=== PATIENT | male | born 1955 | race Caucasian/White ===

== ENCOUNTER → 2017-05-19 | Outpatient (CLI) | payer OTHER ==
[2015-06-01 08:10] VITALS: BP 124/77
[~2017-05-19] VITALS: Ht 177.8 cm; Wt 67.1 kg
[~2017-05-19] MED LIST: NORMAL SALINE IV ONE; SINCALIDE IV ONE
--- NOTE | 2017-05-19 11:42 | RAD ---
Right upper quadrant abdominal ultrasound, 05/19/2017: History: Weight loss, abdominal pain The gallbladder is within normal limits in size. There is no sonographic evidence of cholelithiasis. The gallbladder wall is not thickened. No bile duct dilatation is seen. The visualized portions of the liver, pancreas and right kidney show no abnormality. IMPRESSION: No significant abnormality is detected.
--- NOTE | 2017-05-19 11:44 | RAD ---
Radionuclide hepatobiliary scan with gallbladder ejection fraction, 05/19/2017: History: Epigastric discomfort Following IV injection of 5.5 mCi of technetium 99m Choletec there was prompt uptake of the radionuclide from the blood stream by the liver. Activity is present in the bile ducts and gallbladder at 10 minutes. Initial imaging out to one hour showed increasing activity in the gallbladder without extension into the small bowel. Following IV injection of 1.3 mcg of cholecystokinin there was extension of activity into the small bowel. The gallbladder ejection fraction was calculated at 53%. IMPRESSION: 1. Normal radionuclide hepatobiliary scan. 2. The gallbladder ejection fraction is 53%.
== END | disposition home or self-care (01) ==
LOC: US 07:08
PROVIDERS: ATTEND Internal Medicine Gastroenterology
DX: R10.11 Right upper quadrant pain (principal); R63.4 Abnormal weight loss
CPT/HCPCS: 76705; 78226; 96374; 96375; A9537; J2805

== ENCOUNTER 2017-11-02 09:56 | Day surgery (SDC) | payer OTHER ==
[~2017-11-02 09:56] MED LIST changes: +HYDROmorphone 2 MG/ML VIAL IV PRN; +IV RINGERS,LACTATED 1000ML 1,000 ML IV SCH; +LIDOCAINE 1% PF 2 ML VIAL. ID PRN; +MORPHINE SULFATE 2 MG/ML DISP.SYRIN. IV PRN; -NORMAL SALINE IV ONE; +ONDANSETRON PF 4 MG/2 ML VIAL. IV PRN; +PROCHLORPERAZINE 10 MG/2 ML VIAL. IV PRN; -SINCALIDE IV ONE; +ceFAZolin SODIUM IV Push 1 GM VIAL. IVP ONE; +fentaNYL PF VIAL 100 MCG/2 ML VIAL IV PRN
[2017-11-02] MEDS ORDERED: 0.9 % SODIUM CHLORIDE 50 ML VIAL. IJ ONE ×2 (10:32)
[2017-11-02] MEDS ORDERED: LIDOCAINE 2% PF Vial for OR 5 ML VIAL. ONE ×3 (10:32)
[2017-11-02] MEDS ORDERED: PROPOFOL 50 ML IV ONE ×2 (10:32→13:53)
[2017-11-02] MEDS ORDERED: ZOLP5TAB PO (10:53)
[2017-11-02] MEDS ORDERED: IBUP-1027 PO (10:53)
[2017-11-02] MEDS ORDERED: ASPI-482 PO (10:53)
[2017-11-02] MEDS ORDERED: ATOR10TA60 PO (10:53)
--- NOTE | 2017-11-02 13:20 | DISCH ---
DISCHARGE INSTRUCTIONS Condition on Discharge Condition on Discharge: Stable Activity After Discharge Activity Instructions for Disc: Other, see below Other activity instructions: avoid hard grasp Diet after Discharge Diet after Discharge: Regular Wound Incision Care Wound/Incision Care: Ice to area for comfort, Do not change dressing Other wound/incision instructi: keep dressing dry Contacting the DRKelly after DC Call your doctor for: Concerns you may have Follow-Up Follow up with: Salvatore 10 days MARY VILLARREAL MD Nov 02, 2017 13:20
[2017-11-02] MEDS ORDERED: HYDR-971 PO (13:23)
[2017-11-02] MEDS ORDERED: BUPIVACAINE MPF 0.5% 30 ML VIAL. ONE (14:20)
--- NOTE | 2017-11-02 14:22 | PDOC4 ---
Operative Note Operative Note Date of surgery: 11/02/2017 Preoperative diagnosis: Right carpal tunnel syndrome Postoperative diagnosis: Same Operative procedure: Right carpal tunnel release Surgeon: Salvatore Anesthesia: Faustino block Estimated blood loss: 1 mL Complications: None Operative indications: Patient is had numbness and tingling and pain in the right hand fairly long-standing in nature affecting his activities of daily living and grasp. Diagnosis of carpal tunnel syndrome was confirmed by EMG testing. I had gone over with him operative treatment options as well as additional nonoperative treatment options all of which she is really exhausted at this point we talked about the possibility of ongoing symptoms and complete recovery medical or other anesthetic consultations among others and the possibility of tenderness at the base of the palm. All his questions were answered he wishes to proceed with operative evaluation and treatment Operative text: Patient was identified procedure verified patient placed in the supine position on the right operating table. After adequate amounts of Faustino block anesthesia were administered the right upper extremity was prepped and draped in standard sterile fashion timeout was performed patient procedure again identified and verified. A longitudinal incision was made just distal to the distal wrist crease dissection carried out down to the transverse carpal ligament which was divided longitudinally under direct visualization contents of carpal tunnel were protected no synovitis was noted median nerve was noted to have moderate compression which was released proximally and distally verified by insertion of a Ashburn elevator to verify complete release. Closure accomplished with nylon suture in vertical mattress fashion sterile dressings were applied fingers were noted be warm pink following inflation of the tourniquet patient was returned recovery room in stable condition having tolerated procedure well MARY VILLARREAL MD Nov 02, 2017 14:22
[2017-11-02 14:50] VITALS: BP 138/78
== END 2017-11-02 15:03 | disposition home or self-care (01) ==
LOC: SURG 09:56
PROVIDERS: ATTEND Orthopaedic Surgery
DX: G56.01 Carpal tunnel syndrome, right upper limb (principal); Z98.890 Other specified postprocedural states; E78.00 Pure hypercholesterolemia, unspecified
CPT/HCPCS: 64721; C1769; J2704; J3490; J0690; J2001

== ENCOUNTER → 2018-06-27 | Outpatient (CLI) | payer OTHER | END | disposition home or self-care (01) | LOC: KCIC 15:30 | DX: R07.81 Pleurodynia (principal) | CPT/HCPCS: 71101 ==

== ENCOUNTER 2021-09-26 11:37 | Emergency (ER) | payer MEDICARE ==
[~2021-09-26] VITALS: Ht 175.3 cm; Wt 70.4 kg
[~2021-09-26 11:37] MED LIST changes: +ASPI-482 PO; +ATOR10TA60 PO; +HYDR-3164 PO; -HYDROmorphone 2 MG/ML VIAL IV PRN; +IBUP-1027 PO; -IV RINGERS,LACTATED 1000ML 1,000 ML IV SCH; -LIDOCAINE 1% PF 2 ML VIAL. ID PRN; -MORPHINE SULFATE 2 MG/ML DISP.SYRIN. IV PRN; -ONDANSETRON PF 4 MG/2 ML VIAL. IV PRN; -PROCHLORPERAZINE 10 MG/2 ML VIAL. IV PRN; +ZOLP5TAB PO; -ceFAZolin SODIUM IV Push 1 GM VIAL. IVP ONE; -fentaNYL PF VIAL 100 MCG/2 ML VIAL IV PRN
[2021-09-26 11:58] VITALS: BP 115/69
--- NOTE | 2021-09-26 12:40 | PHYS DOC ---
Past Medical History Past Medical History: No Pertinent History Additional Past Medical Histor: "stomach issues" Past Surgical History: No Surgical History Smoking Status: Current Every Day Smoker Additional Information: 1ppd Alcohol Use: Occasionally Drug Use: None General Adult EDM: Chief Complaint: LOWER EXT PAIN HPI: HPI: Patient is a 66 year old male who presents with 1-2-week history of left calf pain. Patient states the pain started mild, but has been worse since onset. He describes the pain as swollen and tight, with sharp 10/10 pain on flexion. Patient states that he spoke to both his primary care provider and chiropractor, both of whom advised to visit the ER for evaluation. Patient denies history of hypertension, diabetes or cardiovascular issues. Patient does admit to smoking 1 pack/day. Patient denies recent travel, recent surgical procedure, or other bedrest. Patient states he is very active. He has no history of blood clots in the past. Patient has no other complaints at this time. Review of Systems: Review of Systems: Constitutional: Denies fever or chills. Respiratory: Denies cough or shortness of breath. Cardiovascular: Denies chest pain or edema. Musculoskeletal: See HPI Integument: Denies rash or other skin lesion. Neurologic: Denies headache, focal weakness or sensory changes. Heart Score: C/O Chest Pain: No Allergies: Allergies: Allergies Coded Allergies Type Severity Reaction Last Updated Verified bee venom protein (honey bee) Allergy Intermediate 11/02/17 No Physical Exam: PE: Constitutional: Well developed, well nourished, no acute distress, non-toxic appearance. Cardiovascular: Heart rate regular rhythm, no murmur. Lungs & Thorax: Bilateral breath sounds clear to auscultation. Skin: Warm, dry, no erythema, no rash. Extremities: Left calf is not swollen and does not have pitting edema, however there is tenderness along deep venous system, Homans' sign negative. Extremities otherwise no tenderness, no cyanosis, no clubbing, ROM intact, no edema. Neurologic: Alert and oriented x3, normal motor function, normal sensory function, no focal deficits noted. Current Patient Data: Vital Signs: Vital Signs Date Time Temp Pulse Resp B/P (MAP) Pulse Ox O2 Delivery O2 Flow Rate FiO2 09/26/21 11:58 98.2 77 20 115/69 (84) 96 Room Air 98.2 Radiology/Procedures: Radiology/Procedures: PROCEDURE: VENOUS LOWER EXTREMITY LEFT EXAM: Left lower extremity venous Doppler sonogram. HISTORY: Pain and swelling. TECHNIQUE: [place]amoros scale and color Doppler sonographic evaluation of the left lower extremity veins with spectral waveform analysis was performed. FINDINGS: There is occlusive left peroneal deep venous thrombosis. There is normal color flow, normal compressibility and there are normal spectral waveforms in the common femoral, superficial femoral, popliteal, posterior tibial and greater saphenous veins. IMPRESSION: Left peroneal deep venous thrombosis. Findings were discussed with Priyanka, the nurse in the ER, at 1330 hours on 09/26/2020. FOR INTERNAL CODING PURPOSES RESULT CODE: (C) Electronically signed by: Joann Morales MD (09/26/2021 1:33 PM) [id number] Course & Med Decision Making: Course & Med Decision Making Pertinent Labs and Imaging studies reviewed. (See chart for details) Patient has well score of 2 for tenderness along deep vein course and presence of varicose veins. Due to additional history of tobacco use 1 pack/day, venous ultrasound ordered. DVT is seen on ultrasound. Patient will be treated with Eliquis. Patient med list includes aspirin daily, however he denies that he takes this medication every day. Patient should follow-up with their primary care doctor. He should return for any worsening pain or new symptoms, especially shortness of breath or chest pain. Patient understands and is agreeable to discharge plan. Dragon Disclaimer: Dragon Disclaimer: This electronic medical record was generated, in whole or in part, using a voice recognition dictation system. Departure Departure Impression: Primary Impression: Deep venous thrombosis (DVT) of left peroneal vein Qualified Codes: I82.452 - Acute embolism and thrombosis of left peroneal vein Disposition: HOME / SELF CARE / HOMELESS Condition: STABLE Referrals: SILAS LORENZ MD (PCP) Patient Instructions: Deep Vein Thrombosis Additional Instructions: A DVT was seen on ultrasound today. You will be treated with Eliquis, which is an anticoagulant drug. Follow-up with your primary doctor. Return to the emergency department if your symptoms worsen or if you develop new symptoms, especially shortness of breath or chest pain. Scripts Apixaban (ELIQUIS) 5 Mg Tablet 5 MG PO BID for DVT for 90 Days, #194 TAB Take 2 tablets by mouth twice per day for 7 days. Beginning on day 8, take 1 tablet by mouth twice per day. Prov: ROSALIND WILLIS 09/26/21 ROSALIND WILLIS Sep 26, 2021 12:40
--- NOTE | 2021-09-26 13:36 | RAD ---
EXAM: Left lower extremity venous Doppler sonogram. HISTORY: Pain and swelling. TECHNIQUE: Matamoros scale and color Doppler sonographic evaluation of the left lower extremity veins with spectral waveform analysis was performed. FINDINGS: There is occlusive left peroneal deep venous thrombosis. There is normal color flow, normal compressibility and there are normal spectral waveforms in the common femoral, superficial femoral, popliteal, posterior tibial and greater saphenous veins. IMPRESSION: Left peroneal deep venous thrombosis. Findings were discussed with Priyanka, the nurse in the ER, at 1330 hours on 09/26/2020. FOR INTERNAL CODING PURPOSES RESULT CODE: (C) Electronically signed by: Joann Morales MD (09/26/2021 1:33 PM) [id number]
[2021-09-26] MEDS ORDERED: APIX5TAB PO (13:45)
== END 2021-09-26 14:24 | disposition home or self-care (01) ==
LOC: ER 11:37
DX: I82.452 Acute embolism and thrombosis of left peroneal vein (principal); F17.200 Nicotine dependence, unspecified, uncomplicated; Z91.030 Bee allergy status
CPT/HCPCS: 93971; 99284

== ENCOUNTER 2021-10-22 12:03 | Emergency (ER) | payer MEDICARE ==
[~2021-10-22] VITALS: Ht 180.3 cm; Wt 70.4 kg
[~2021-10-22 12:03] MED LIST changes: +APIX5TAB PO
[2021-10-22 12:42] LABS: BASO % 1 % (0-3); EOS # 0.1 x10^3/uL (0.0-0.7); EOS % 1 % (0-3); HEMATOCRIT 40.2 % (39.0-53.0); HEMOGLOBIN 13.9 g/dL (13.0-17.5); LYMPH # 1.3 x10^3/uL (1.0-4.8); LYMPH % 19 % (24-48); MEAN CORPUSCULAR HEMOGLOBIN 32 pg (25-35); MEAN CORPUSCULAR HGB CONC 35 g/dL (31-37); MEAN CORPUSCULAR VOLUME 93 fL (79-100); MONO # 0.7 x10^3/uL (0.0-1.1); MONO % 10 % (0-9); NEUT # 4.7 x10^3/uL (1.8-7.7); NEUT % 69 % (31-73); PLATELET COUNT 328 x10^3/uL (140-400); RED BLOOD COUNT 4.32 x10^6/uL (4.30-5.70); RED CELL DISTRIBUTION WIDTH 13.6 % (11.5-14.5); WHITE BLOOD COUNT 6.9 x10^3/uL (4.0-11.0)
[2021-10-22] MEDS ORDERED: IV NORMAL SALINE 1000ML BAG 1,000 ML IV SCH (12:45)
[2021-10-22 12:52] LABS: PROTHROMBIN TIME PATIENT 15.3 SEC (11.7-14.0)
--- NOTE | 2021-10-22 12:53 | RAD ---
Single view of the chest. 10/22/2021 12:40 PM Indication: Reason: dizziness / Spl. Instructions: / History: Comparison: Chest radiograph May 28, 2018 Findings: There is mild diffuse interstitial coarsening. No pneumothorax or pleural effusion is seen. Heart size is normal. No acute osseous changes are seen. IMPRESSION: 1. Diffuse interstitial coarsening, appearance favors a chronic etiology 2. No evidence of acute cardiopulmonary process Electronically signed by: Eric Conklin MD (10/22/2021 12:51 PM) [id number]
[2021-10-22 13:00] LABS: CALCIUM 9.1 mg/dL (8.5-10.1); GFR 74.8; POTASSIUM 3.9 mmol/L (3.5-5.1)
[2021-10-22 13:01] LABS: ALBUMIN 3.8 g/dL (3.4-5.0); ALBUMIN/GLOBULIN RATIO 1.2 (1.0-1.7); MAGNESIUM 2.2 mg/dL (1.8-2.4); TOTAL BILIRUBIN 0.4 mg/dL (0.2-1.0)
[2021-10-22] MEDS ORDERED: diazePAM 5 MG TABLET PO ONE ×2 (13:15→16:00)
[2021-10-22] MEDS ORDERED: MECLIZINE HCL 12.5 MG TABLET. PO ONE (13:15)
[2021-10-22] MEDS ORDERED: IOHEXOL 300 MG/ML 100ML VIAL. IV ONE (13:30)
[2021-10-22 13:36] LABS: BILIRUBIN,URINE NEGATIVE (NEG); CLARITY,URINE CLEAR; COLOR,URINE YELLOW; NITRITE,URINE NEGATIVE (NEG); PH,URINE 6.5 (<5.0-8.0); PROTEIN,URINE NEGATIVE (NEG-TRACE); UROBILINOGEN,URINE 0.2 mg/dL (0.2 mg/dL)
[2021-10-22 13:43] LABS: AMPHETAMINE/METHAMPHETAMINE NEG (NEG); BARBITURATES NEG (NEG); BENZODIAZEPINES NEG (NEG); CANNABINOIDS NEG (NEG); COCAINE NEG (NEG); METHADONE NEG (NEG); OPIATES NEG (NEG); PHENCYCLIDINE NEG (NEG)
[2021-10-22 13:54] LABS: BACTERIA,URINE 0 /HPF (0-FEW); WBC,URINE OCC /HPF (0-4)
--- NOTE | 2021-10-22 14:06 | RAD ---
EXAM: CT HEAD WITHOUT CONTRAST. HISTORY: Dizziness. TECHNIQUE: Computed tomography of the head was performed without intravenous contrast. One or more of the following individualized dose reduction techniques were utilized for this examination: 1. Automated exposure control. 2. Adjustment of the mA and/or kV according to patient size. 3. Use of iterative reconstruction technique. COMPARISON: None. FINDINGS: There is no intracranial hemorrhage. Hypoattenuation within the periventricular white matte r indicates mild chronic microangiopathic change. The ventricles are normal in size and position. The visualized paranasal sinuses appear clear. The orbits are unremarkable. The temporal bones are un remarkable. The calvarium reveals no suspicious lesions. IMPRESSION: 1. No acute intracranial findings. Electronically signed by: Bebeto Pulido MD (10/22/2021 2:04 PM) [id number]
--- NOTE | 2021-10-22 14:12 | RAD ---
EXAM: 1. CTA HEAD WITH AND WITHOUT CONTRAST. 2. CTA NECK WITH AND WITHOUT CONTRAST. HISTORY: Dizziness, cerebrovascular accident. TECHNIQUE: Computed tomographic angiography of the head and neck was performed before and after the i ntravenous administration of iodinated contrast. Three-dimensional reconstructions were also performe d. One or more of the following individualized dose reduction techniques were utilized for this exami nation: 1. Automated exposure control. 2. Adjustment of the mA and/or kV according to patient size. 3. Use of iterative reconstruction technique. COMPARISON: None. FINDINGS: Angiographic findings: The aortic arch has a typical branching pattern. There is no arch vessel steno sis. There are mild atherosclerotic calcifications at the left carotid bulb. There is no common carotid st enosis. Both internal carotid arteries are patent without stenosis. The external carotid systems are patent. The vertebral arteries are patent. The basilar artery is patent. Both posterior cerebral arteries are patent. The posterior communicatin g arteries are visualized. The intracranial internal carotid arteries demonstrate no stenosis. The middle cerebral arteries are patent. The anterior cerebral arteries are patent. The anterior communicating artery is visualized. Nonangiographic findings: There is no intracranial hemorrhage. Mild hypoattenuation within the perive ntricular white matter indicates mild chronic small vessel ischemic white matter change. The ventricl es are normal in size and position. The paranasal sinuses appear clear. The orbits are unremarkable. The temporal bones are unremarkable. Bone windows reveal no suspicious lesions. The lung apices demonstrate moderate centrilobular and pa raseptal emphysema. A sialolith in the left parotid gland measures 4 mm. Another 2 mm sialolith is noted superiorly in th e right parotid gland. The submandibular glands are unremarkable. The thyroid gland demonstrates no s uspicious lesions. There are no laryngeal or pharyngeal masses. There are no pathologically enlarged lymph nodes. IMPRESSION: 1. No hemodynamically significant cervical arterial stenosis. 2. No intracranial stenosis or aneurysm. 3. Moderate centrilobular and paraseptal emphysema. 4. Parotid sialoliths bilaterally as above. PQRS Compliance Statement - Stenosis calculations for CT, MR and conventional angiography are based u ashley measurement of the distal ICA diameter in accordance with the NASCET methodology. Stenosis calcu lations for carotid ultrasound studies are derived from validated velocity criteria which are known t o correlate with the NASCET methodology. Electronically signed by: Bebeto Pulido MD (10/22/2021 2:10 PM) [id number]
--- NOTE | 2021-10-22 15:25 | EKG ---
[facility] [address] [place] [id number] Test Date: 2021-10-22 Test Time: 12:19:13 Pat Name: ALIE STOVALL Department: Room: Gender: Correctional [employer]: : 1955 Requested By: JET ROPER Order Number: [id number] Reading MD: Deangelo Givens Measurements Intervals [place] Rate: 76 P: 71 [place]: 180 QRS: 60 QRSD: 80 T: 37 QT: 380 QTc: 432 Interpretive Statements SINUS RHYTHM MILD NONSPECIFIC ST CHANGES Electronically Signed On 10-27-2021 10:49:06 [employer]ITAL [employer]IA [employer] by Deangelo Givens
--- NOTE | 2021-10-22 15:31 | PHYS DOC ---
Past Medical History Past Medical History: No Pertinent History Additional Past Medical Histor: DVT Past Surgical History: Other Additional Past Surgical Histo: CARPEL TUNNEL Smoking Status: Current Every Day Smoker Alcohol Use: Occasionally Drug Use: None General Adult EDM: Chief Complaint: DIZZY/LIGHT HEADED HPI: HPI: 66-year-old male past medical history of DVT on coumadin (via Dr. Cheng, couldn't afford eliquis) since September 26, hyperlipidemia, Mnire disease, tobacco use and daily alcohol abuse (drinks 4-6 beers every day), presents the ED with his byifvkj-tz-tto, (patient consents to his/her/their knowledge and involvement in pts' medical care), with complaints of quick onset dizziness as if he was going to fall stating " the whole room was spinning so fast." Symptoms occurred last night and lasted for 5 minutes. Symptoms occurred for almost 2 hours today. States " I still feel little foggy." Has a history of Mnire's and disease, diagnosed with ENT Dr. Moralez, but states this was much worse per the spinning sensation. States his eyes usually twitch and he is able to walk steadily with his Mnire's exacerbations. Reports meclizine does not work. Patient denies any head injury, history of CVA or intracranial hemorrhage. Denies any associated nausea, vomiting, chest pain, shortness of breath, blurry vision, hearing loss, weakness or numbness or facial droop. Review of Systems: Review of Systems: Constitutional: Denies fever or chills. [] Eyes: Denies change in visual acuity. [] HENT: Denies nasal congestion or sore throat. [] Respiratory: Denies cough or shortness of breath. [] Cardiovascular: Denies chest pain or edema. [] GI: Denies abdominal pain, nausea, vomiting, bloody stools or diarrhea. [] : Denies dysuria or hematuria Musculoskeletal: Denies back pain or joint pain. [] Integument: Denies rash or diaphoresis Neurologic: Denies headache, neck pain, focal weakness or sensory changes. [] Endocrine: Denies polyuria or polydipsia. [] Lymphatic: Denies swollen glands. [] Psychiatric: Denies depression or anxiety. [] Heart Score: C/O Chest Pain: No Risk Factors: Risk Factors: DM, Current or recent (<one month) smoker, HTN, HLP, family history of CAD, obesity. Risk Scores: Score 0 - 3: 2.5% MACE over next 6 weeks - Discharge Home Score 4 - 6: 20.3% MACE over next 6 weeks - Admit for Clinical Observation Score 7 - 10: 72.7% MACE over next 6 weeks - Early Invasive Strategies Current Medications: Current Medications Medications (Trade) Dose Ordered Sig/Yamileth Start Time Stop Time Status Last Admin Dose Admin Diazepam (Valium) 5 mg 1X ONCE 10/22/21 13:15 10/22/21 13:21 DC 10/22/21 13:37 5 MG Iohexol (Omnipaque 300 Mg/ml) 75 ml 1X ONCE 10/22/21 13:30 10/22/21 13:31 DC 10/22/21 13:41 75 ML Meclizine HCl (Antivert) 25 mg 1X ONCE 10/22/21 13:15 10/22/21 13:21 DC 10/22/21 13:37 25 MG Sodium Chloride 1,000 ml @ 1,000 mls/hr Q1H 10/22/21 12:45 10/22/21 13:44 DC 10/22/21 12:42 1,000 MLS/HR Allergies: Allergies: Allergies Coded Allergies Type Severity Reaction Last Updated Verified bee venom protein (honey bee) Allergy Intermediate 11/02/17 No Physical Exam: PE: Constitutional: Well developed, well nourished, no acute distress, non-toxic appearance. HENT: Normocephalic, atraumatic, Eyes: PERRLA, right-sided horizontal nystagmus, EOMI, conjunctiva normal, no discharge. Neck: Normal range of motion, supple, Cardiovascular: S1/2 present, regular rhythm Lungs & Thorax: Speaking in full sentences, bilateral equal chest rise, no tachypnea or increased work of breathing Abdomen: soft, no tenderness, Skin: Warm, dry, no erythema, no rash. [] Back: No tenderness, no CVA tenderness. [] Extremities: No tenderness, no cyanosis, no lower extremity edema Neurologic: Cranial nerves II through XII intact, intact wxuzeu-htxm-fuwady and rapid alternating movements, normal utjj-dc-njco testing, steady gait w/no ataxia (per rn, pt shook his head when walking-no exacerbation or recurrent sxs), alert and oriented X 3, normal motor function, normal sensory function, no focal deficits noted. [] Psychologic: Affect normal, judgement normal, mood normal. [] HINTS exam not performed due to no active vertigo al nystagmus Current Patient Data: Labs: Laboratory Tests Test 10/22/21 12:15 10/22/21 12:25 10/22/21 13:20 10/22/21 14:30 Glucose (Fingerstick) 145 mg/dL (70-99) H White Blood Count 6.9 x10^3/uL (4.0-11.0) Red Blood Count 4.32 x10^6/uL (4.30-5.70) Hemoglobin 13.9 g/dL (13.0-17.5) Hematocrit 40.2 % (39.0-53.0) Mean Corpuscular Volume 93 fL (79-100) Mean Corpuscular Hemoglobin 32 pg (25-35) Mean Corpuscular Hemoglobin Concent 35 g/dL (31-37) Red Cell Distribution Width 13.6 % (11.5-14.5) Platelet Count 328 x10^3/uL (140-400) Neutrophils (%) (Auto) 69 % (31-73) Lymphocytes (%) (Auto) 19 % (24-48) L Monocytes (%) (Auto) 10 % (0-9) H Eosinophils (%) (Auto) 1 % (0-3) Basophils (%) (Auto) 1 % (0-3) Neutrophils # (Auto) 4.7 x10^3/uL (1.8-7.7) Lymphocytes # (Auto) 1.3 x10^3/uL (1.0-4.8) Monocytes # (Auto) 0.7 x10^3/uL (0.0-1.1) Eosinophils # (Auto) 0.1 x10^3/uL (0.0-0.7) Basophils # (Auto) 0.0 x10^3/uL (0.0-0.2) Prothrombin Time 15.3 SEC (11.7-14.0) H Prothrombin Time INR 1.2 (0.8-1.1) H Activated Partial Thromboplast Time 27 SEC (24-38) Sodium Level 140 mmol/L (136-145) Potassium Level 3.9 mmol/L (3.5-5.1) Chloride Level 100 mmol/L (98-107) Carbon Dioxide Level 29 mmol/L (21-32) Anion Gap 11 (6-14) Blood Urea Nitrogen 11 mg/dL (8-26) Creatinine 1.0 mg/dL (0.7-1.3) Estimated GFR (Cockcroft-Gault) 74.8 BUN/Creatinine Ratio 11 (6-20) Glucose Level 94 mg/dL (70-99) Calcium Level 9.1 mg/dL (8.5-10.1) Magnesium Level 2.2 mg/dL (1.8-2.4) Total Bilirubin 0.4 mg/dL (0.2-1.0) Aspartate Amino Transferase (AST) 14 U/L (15-37) L Alanine Aminotransferase (ALT) 21 U/L (16-63) Alkaline Phosphatase 67 U/L (46-116) Troponin I High Sensitivity < 4 ng/L (4-75) L 4 ng/L (4-75) NV-Mrw-K-Type Natriuretic Peptide 315 pg/mL (0-124) H Total Protein 7.0 g/dL (6.4-8.2) Albumin 3.8 g/dL (3.4-5.0) Albumin/Globulin Ratio 1.2 (1.0-1.7) Urine Collection Type Unknown Urine Color Yellow Urine Clarity Clear Urine pH 6.5 (<5.0-8.0) Urine Specific [place] <=1.005 (1.000-1.030) Urine Protein Negative mg/dL (NEG-TRACE) Urine Glucose (UA) Negative mg/dL (NEG) Urine Ketones (Stick) Negative mg/dL (NEG) Urine Blood Negative (NEG) Urine Nitrite Negative (NEG) Urine Bilirubin Negative (NEG) Urine Urobilinogen Dipstick 0.2 mg/dL (0.2 mg/dL) Urine Leukocyte Esterase Negative (NEG) Urine RBC 1-2 /HPF (0-2) Urine WBC Occ /HPF (0-4) Urine Bacteria 0 /HPF (0-FEW) Urine Opiates Screen Neg (NEG) Urine Methadone Screen Neg (NEG) Urine Barbiturates Neg (NEG) Urine Phencyclidine Screen Neg (NEG) Urine Amphetamine/Methamphetamine Neg (NEG) Urine Benzodiazepines Screen Neg (NEG) Urine Cocaine Screen Neg (NEG) Urine Cannabinoids Screen Neg (NEG) Urine Ethyl Alcohol Neg (NEG) Laboratory Tests 10/22/21 12:25 Laboratory Tests 10/22/21 12:25 Vital Signs: Vital Signs Date Time Temp Pulse Resp B/P (MAP) Pulse Ox O2 Delivery O2 Flow Rate FiO2 10/22/21 12:25 98.2 75 18 160/96 (117) 100 Room Air 98.2 EKG: EKG: Sinus rhythm 76 bpm, no axis deviation, normal intervals, no T wave inversion, no ST elevation or ST depression Radiology/Procedures: Radiology/Procedures: IMAGING REPORT Signed PATIENT: ALIE STOVALL ACCOUNT: [id number] : 1955 LOCATION: ER AGE: 66 SEX: M EXAM STATUS: REG ER ORD. PHYSICIAN: JET ROPER DO REASON: dizziness PROCEDURE: CT HEAD WO CONTRAST EXAM: CT HEAD WITHOUT CONTRAST. HISTORY: Dizziness. TECHNIQUE: Computed tomography of the head was performed without intravenous contrast. One or more of the following individualized dose reduction techniques were utilized for this examination: 1. Automated exposure control. 2. Adjustment of the mA and/or kV according to patient size. 3. Use of iterative reconstruction technique. COMPARISON: None. FINDINGS: There is no intracranial hemorrhage. Hypoattenuation within the periventricular white matter indicates mild chronic microangiopathic change. The ventricles are normal in size and position. The visualized paranasal sinuses appear clear. The orbits are unremarkable. The temporal bones are unremarkable. The calvarium reveals no suspicious lesions. IMPRESSION: 1. No acute intracranial findings. Electronically signed by: Bebeto Pulido MD (10/22/2021 2:04 PM) [id number] DICTATED and SIGNED BY: HANDY PULIDO MD DATE: 10/22/21 [id number] IMAGING REPORT Signed PATIENT: ALIE STOVALL ACCOUNT: [id number] : 1955 LOCATION: ER AGE: 66 SEX: M EXAM STATUS: REG ER ORD. PHYSICIAN: JET ROPER DO REASON: dizziness PROCEDURE: CT ANGIOGRAPHY HEAD AND NECK EXAM: 1. CTA HEAD WITH AND WITHOUT CONTRAST. 2. CTA NECK WITH AND WITHOUT CONTRAST. HISTORY: Dizziness, cerebrovascular accident. TECHNIQUE: Computed tomographic angiography of the head and neck was performed before and after the intravenous administration of iodinated contrast. Three- dimensional reconstructions were also performed. One or more of the following in dividualized dose reduction techniques were utilized for this examination: 1. Automated exposure control. 2. Adjustment of the mA and/or kV according to patient size. 3. Use of iterative reconstruction technique. COMPARISON: None. FINDINGS: Angiographic findings: The aortic arch has a typical branching pattern. There is no arch vessel stenosis. There are mild atherosclerotic calcifications at the left carotid bulb. There is no common carotid stenosis. Both internal carotid arteries are patent without stenosis. The external carotid systems are patent. The vertebral arteries are patent. The basilar artery is patent. Both posterior cerebral arteries are patent. The posterior communicating arteries are visualized. The intracranial internal carotid arteries demonstrate no stenosis. The middle cerebral arteries are patent. The anterior cerebral arteries are patent. The anterior communicating artery is visualized. Nonangiographic findings: There is no intracranial hemorrhage. Mild hypoattenuation within the periventricular white matter indicates mild chronic small vessel ischemic white matter change. The ventricles are normal in size and position. The paranasal sinuses appear clear. The orbits are unremarkable. The temporal bones are unremarkable. Bone windows reveal no suspicious lesions. The lung apices demonstrate moderate centrilobular and paraseptal emphysema. A sialolith in the left parotid gland measures 4 mm. Another 2 mm sialolith is noted superiorly in the right parotid gland. The submandibular glands are unremarkable. The thyroid gland demonstrates no suspicious lesions. There are no laryngeal or pharyngeal masses. There are no pathologically enlarged lymph nodes. IMPRESSION: 1. No hemodynamically significant cervical arterial stenosis. 2. No intracranial stenosis or aneurysm. 3. Moderate centrilobular and paraseptal emphysema. 4. Parotid sialoliths bilaterally as above. PQRS Compliance Statement - Stenosis calculations for CT, MR and conventional angiography are based upon measurement of the distal ICA diameter in accordance with the NASCET methodology. Stenosis calculations for carotid ultrasound studies are derived from validated velocity criteria which are known to correlate with the NASCET methodology. Electronically signed by: Bebeto Pulido MD (10/22/2021 2:10 PM) [id number] DICTATED and SIGNED BY: HANDY PULIDO MD DATE: 10/22/21 [id number] IMAGING REPORT Signed PATIENT: ALIE STOVALL ACCOUNT: [id number] : 1955 LOCATION: ER AGE: 66 SEX: M EXAM STATUS: PRE ER ORD. PHYSICIAN: JET ROPER DO REASON: dizziness PROCEDURE: PORTABLE CHEST 1V Single view of the chest. 10/22/2021 12:40 PM Indication: Reason: dizziness / Spl. Instructions: / History: Comparison: Chest radiograph May 28, 2018 Findings: There is mild diffuse interstitial coarsening. No pneumothorax or pleural effusion is seen. Heart size is normal. No acute osseous changes are seen. IMPRESSION: 1. Diffuse interstitial coarsening, appearance favors a chronic etiology 2. No evidence of acute cardiopulmonary process Electronically signed by: Eric Hope MD (10/22/2021 12:51 PM) [id number] DICTATED and SIGNED BY: ERIC HOPE MD DATE: 10/22/21 [id number] 0 Course & Med Decision Making: Course & Med Decision Making Pertinent Labs and Imaging studies reviewed. (See chart for details) Concern for fatigable vertigo, cannot exclude central vertigo but's unlikely given resolution of symptoms. Pt is surprised his labs and chest x-ray are normal given his history of daily alcohol and tobacco use. Patient with no neurologic deficits, well-appearing with steady gait. Will discharge home with strict ED return precautions were given for nonfatigable dizziness, nausea, vomiting, neurologic deficits or head injury. Encouraged urgent outpatient follow-up with PMD and ENT for definitive management. Life-threatening processes were considered but are low suspicion at this time, given history, physical exam and ED workup. Pt was educated on all prescription medications and adverse effects. All patient's questions were answered and pt was stable at time of discharge. Life/limb-threatening differential includes but is not limited to, cerebrovascular accident, cerebellar stroke, acute coronary syndrome, carbon monoxide poisoning or other toxidrome, syncope differential including cardiac arrhythmia/PE/aortic aneurysm or dissection/ACS, Gu[place] syndrome, thyroid disease, infection, central and peripheral vertigo, intracranial hemorrhage, vertebrobasilar insufficiency, heat stroke, electrolyte disorder, rheumatologic or autoimmune disorder I have spoken with the patient and/or caregivers. I explained the patient's condition, diagnoses and treatment plan based on the information available to me at this time. I have answered the patient and/or caregiver's questions and addressed any concerns. The patient and/or caregivers have a good understanding of patient's diagnosis, condition and treatment plan as can be expected at this point. Vital signs have been stable. Patient's condition is stable and appropriate for discharge from the emergency department. Patient will pursue further outpatient evaluation with primary care physician or other designated or consulting physician as outlined in the discharge instructions. The patient and/or caregivers are agreeable to this plan of care and follow-up instructions have been explained in detail. The patient and/or caregivers have received these instructions in written form and have expressed an understanding of the discharge instructions. The patient and/or caregivers are aware that any significant change of condition or worsening of symptoms should prompt immediate return to this or the closest emergency department or call to 911. Abelardo Disclaimer: Abelardo Disclaimer: This electronic medical record was generated, in whole or in part, using a voice recognition dictation system. Departure Departure Impression: Primary Impression: Dizziness Disposition: 01 HOME / SELF CARE / HOMELESS Condition: STABLE Referrals: SILAS LORENZ MD (PCP) Follow-up with your primary care physician in 24 to 48 hours OR FOLLOW UP WITH FAMILY MEDICINE: [address] [facility], [facility] [address] [place] [address] Patient Instructions: Dizziness, Vertigo Additional Instructions: FOLLOW UP WITH ENT: FOR DEFINITIVE MANAGEMENT Otolaryngology [address] [facility], [address] [place] [address] [facility] [address] [facility] [address] [place] [address] EMERGENCY DEPARTMENT GENERAL DISCHARGE INSTRUCTIONS Thank you for coming to [facility] Emergency Department (ED) today and trusting us with you care. We trust that you had a positive experience in our Emergency Department. If you wish to speak to the department management, you may call the Director at [phone]. YOUR FOLLOW UP INSTRUCTIONS ARE FOLLOWS: 1. Do you have a private Doctor? If you do not have a private doctor, please ask for a resource list of physicians or clinics that may be able to assist you with follow up care. 2. The Emergency Physicain has interpreted your x-rays. The X-Ray specialist will also review them. If there is a change in the findings, you will be notified in 48 hours when at all possible. 3. A lab test or culture has been done, your results will be reviewed and you will be notified if you need a change in treatment. ADDITIONAL INSTRUCTIONS AND INFORMATION: 1. Your care today has been supervised by a physician who is specially trained in emergency care. Many problems require more than one evaluation for a complete diagnosis and treatment. We recommend that you schedule your follow up appointment as recommended to ensure complete treatment of you illness or injury. If you are unable to obtain follow up care and continue to have a problem, or if your condition worsens, we recommend that you return to the ED. 2. We are not able to safely determine your condition over the phone nor are we able to give sound medical advice over the phone. For these safety reasons, if you call for medical advice we will ask you to come to the ED for further evaluation. 3. If you have any questions regarding these discharge instructions please call the ED at [phone]. SAFETY INFORMATION: In the interest of safety, wellness, and injury prevention; we encourage you to wear your sealbelt, if you smoke; quite smoking, and we encourage family to use a protective helmet for bicycling and other sporting events that present an increased risk for head injury. IF YOUR SYMPTOMS WORSEN OR NEW SYMPTOMS DEVELOP, OR YOU HAVE CONCERNS ABOUT YOUR CONDITION; OR IF YOUR CONDITION WORSENS WHILE YOU ARE WAITING FOR YOUR FOLLOW UP APPOI NTMENT; EITHER CONTACT YOUR PRIMARY CARE DOCTOR, THE PHYSICIAN WHOSE NAME AND NUMBER YOU WERE GIVEN, OR RETURN TO THE ED IMMEDIATELY. [facility] DO Oct 22, 2021 15:30
[2021-10-22 17:37] VITALS: BP 146/74
== END 2021-10-22 18:05 | disposition home or self-care (01) ==
LOC: ER 12:03
DX: R42 Dizziness and giddiness (principal); E78.5 Hyperlipidemia, unspecified; F17.200 Nicotine dependence, unspecified, uncomplicated; Z86.718 Personal history of other venous thrombosis and embolism; Z79.01 Long term (current) use of anticoagulants; Z91.030 Bee allergy status
CPT/HCPCS: 36415; 70450; 70496; 70498; 71045; 80053; 80307; 81001; 82962; 83735; 83880; 84484; 85025; 85610; 85730; 93005; 96360; 99285; J7030; J8597; Q9967